=== PATIENT | male | born 1990 | race Caucasian/White ===

== ENCOUNTER 2017-09-03 20:26 | Emergency (ER) | payer BC ==
--- NOTE | 2017-09-03 21:32 | EDPHYS ---
Physician Documentation [facility] Name: Pedro Pablo Townsend Age: 27 yrs Sex: Male : 1990 Arrival Date: 09/03/2017 Time: 20:29 Bed 28 Private MD: ED Physician Emil Colunga HPI: 09/03 21:25 This 27 yrs old Male presents to ER via Ambulatory with complaints of rn Abscess, Toothache. 21:28 The patient presents with pain. Onset: The symptoms/episode began/occurred at an rn unknown time. Associated signs and symptoms: Pertinent positives: pain. Severity of symptoms: At their worst the symptoms were moderate, in the emergency department the symptoms are unchanged. The patient has experienced similar episodes in the past. Reports has had bad teeth for a while, needs wisdom teeth pulled, + pain at area shortly after eating, hurts to eat and drink. . Historical: - Allergies: 20:55 No Known Allergies; tl2 - Home Meds: 20:55 None [Active]; tl2 - PMHx: 20:55 None; tl2 - PSHx: 20:55 None; tl2 - Immunization history:: Adult Immunizations up to date. - Social history:: Smoking status: Patient/guardian denies using tobacco. - Ebola Screening: : No symptoms or risks identified at this time. - Family history:: not pertinent. - Hospitalizations: : No recent hospitalization is reported. ROS: 21:28 Constitutional: Negative for fever, chills, and weight loss, ENT: + dental pain rn Exam: 21:28 Constitutional: This is a well developed, well nourished patient who is awake, alert, rn and in no acute distress. ENT: Poor dentition with multiple fillings, left posterior upper molar with chip and central cavity, no abscess or swelling noted. Vital Signs: 20:55 BP 129 / 81; Pulse 72; Resp 18; Temp 98.3; Pulse Ox 98% on R/A; Weight 86.18 kg; Height tl2 5 ft. 9 in. (175.26 cm); Pain 8/10; 20:55 Body Mass Index 28.06 (86.18 kg, 175.26 cm) tl2 MDM: 21:18 Patient medically screened. rn 21:28 Differential diagnosis: dental caries. Data reviewed: vital signs, nurses notes, and as rn a result, I will discharge patient. Counseling: I had a detailed discussion with the patient and/or guardian regarding: the historical points, exam findings, and any diagnostic results supporting the discharge/admit diagnosis, the need for outpatient follow up, to return to the emergency department if symptoms worsen or persist or if there are any questions or concerns that arise at home. Special discussion: I discussed with the patient/guardian in detail that at this point there is no indication for admission to the hospital. It is understood, however, that if the symptoms persist or worsen the patient needs to return immediately for re-evaluation. Based on the history and exam findings, there is no indication for further emergent testing or inpatient evaluation. I discussed with the patient/guardian the need to see a dentist for further evaluation of the symptoms. ED course: Recommended OTC ibuprofen/oragel/temporary filling and dental f/u.. Administered Medications: No medications were administered Disposition: 09/03/17 21:31 Discharged to Home as Medical Screen. Impression: Dental caries, Dentalgia. - Condition is Stable. - Discharge Instructions: Dental Pain. - Prescriptions for Clindamycin HCl 300 mg Oral Capsule - take 1 capsule by ORAL route every 6 hours for 10 days; 40 capsule. Tylenol- Codeine #3 300-30 mg Oral Tablet - take 1 tablet by ORAL route every 6 hours As needed; 12 tablet. - Medication Reconciliation Form, Thank You Letter, Antibiotic Education, Prescription Opioid Use form. - Follow up: Private Physician; When: As needed; Reason: Recheck today's complaints, Re-evaluation by your physician. - Problem is an ongoing problem. - Symptoms are unchanged. Signatures: Emil Colunga MD MD rn Knox, Taylor RN RN tl2 Megan Don RN RN rk2 Corrections: (The following items were deleted from the chart) 21:28 21:25 This 27 yrs old Male presents to ER via Ambulatory with complaints of rn Abscess, Toothache. rn 21:39 21:31 09/03/2017 21:31 Discharged to Home as Medical Screen. Impression: Dental caries; rk2 Dentalgia. Condition is Stable. Forms are Medication Reconciliation Form, Thank You Letter, Antibiotic Education, Prescription Opioid Use. Follow up: Private Physician; When: As needed; Reason: Recheck today's complaints, Re-evaluation by your physician. Problem is an ongoing problem. Symptoms are unchanged. rn
--- NOTE | 2017-09-03 21:32 | ER ---
Nurse's Notes [facility] Name: Pedro Pablo Townsend Age: 27 yrs Sex: Male : 1990 Arrival Date: 09/03/2017 Time: 20:29 Bed 28 Private MD: Diagnosis: Dental caries;Dentalgia Presentation: 09/03 20:54 Presenting complaint: Patient states: My upper wisdom tooth is hurting really bad, I tl2 think I have an abscess or something. I was eating about an hour ago and it's been hurting since then. Transition of care: patient was not received from another setting of care. Onset of symptoms was September 03, 2017 at 20:00. Risk Assessment: Do you want to hurt yourself or someone else? Patient reports no desire to harm self or others. Initial Sepsis Screen: Does the patient meet any 2 criteria? No. Patient's initial sepsis screen is negative. Does the patient have a suspected source of infection? No. Patient's initial sepsis screen is negative. Care prior to arrival: None. 20:54 Method Of Arrival: Ambulatory tl2 20:54 Acuity: WHITNEY 4 tl2 Triage Assessment: 20:55 General: Appears in no apparent distress. uncomfortable, Behavior is calm, cooperative, tl2 appropriate for age. Pain: Complains of pain in upper tooth left side. EENT: Poor dentition noted. Dental caries noted in upper left second molar (#15) Reports pain. Historical: - Allergies: 20:55 No Known Allergies; tl2 - Home Meds: 20:55 None [Active]; tl2 - PMHx: 20:55 None; tl2 - PSHx: 20:55 None; tl2 - Immunization history:: Adult Immunizations up to date. - Social history:: Smoking status: Patient/guardian denies using tobacco. - Ebola Screening: : No symptoms or risks identified at this time. - Family history:: not pertinent. - Hospitalizations: : No recent hospitalization is reported. Screenin:30 Abuse screen: Denies threats or abuse. rk2 21:30 Nutritional screening: No deficits noted. Tuberculosis screening: No symptoms or risk rk2 factors identified. Fall Risk None identified. Assessment: 21:30 General: Appears in no apparent distress. well groomed, well developed, well nourished, rk2 Behavior is calm, cooperative. 21:30 Pain: Complains of pain in upper left second molar (#15). Neuro: Level of Consciousness rk2 is alert, obeys commands, Oriented to person, place, time, situation. Respiratory: Airway is patent Respiratory effort is even, unlabored, Respiratory pattern is regular, symmetrical. Derm: Skin is pink, warm \T\ dry. Vital Signs: 20:55 BP 129 / 81; Pulse 72; Resp 18; Temp 98.3; Pulse Ox 98% on R/A; Weight 86.18 kg; Height tl2 5 ft. 9 in. (175.26 cm); Pain 8/10; 20:55 Body Mass Index 28.06 (86.18 kg, 175.26 cm) tl2 ED Course: 20:29 Patient arrived in ED. am2 20:55 Triage completed. tl2 20:55 Arm band placed on right wrist. tl2 21:16 Megan Don RN is Primary Nurse. rk2 21:18 Emil Colunga MD is Attending Physician. rn 21:30 Patient has correct armband on for positive identification. Bed in low position. Call rk2 light in reach. 21:39 No provider procedures requiring assistance completed. Patient did not have IV access rk2 during this emergency room visit. Administered Medications: No medications were administered Outcome: 21:31 Discharge ordered by . rn 21:39 Discharged to home ambulatory. rk2 21:39 Condition: good 21:39 Discharge instructions given to patient, Prescriptions given X 2. 21:39 Patient left the ED. rk2 Signatures: Emil Colunga MD MD rn Knox, Taylor, RN RN tl2 Hannah Fishman on license of [facility] Megan Don RN RN rk2
== END 2017-09-03 21:39 | disposition home or self-care (01) ==
LOC: ER 20:26
DX: K04.7 Periapical abscess without sinus (principal)
CPT/HCPCS: 99282